=== PATIENT | male | born 1995 ===

== ENCOUNTER 2024-01-24 14:00 | Outpatient (CLI) | payer OTHER, SELFPAY | END 2024-01-24 14:01 | disposition home or self-care (01) | PROVIDERS: PCP Physician Assistant Medical; Visit Provider Physician Assistant Medical | DX: Z00.00 Encounter for general adult medical examination without abnormal findings (principal); S70.362D Insect bite (nonvenomous), left thigh, subsequent encounter; Z13.6 Encounter for screening for cardiovascular disorders; Z13.29 Encounter for screening for other suspected endocrine disorder; Z13.9 Encounter for screening, unspecified | CPT/HCPCS: 80053; 80061; 84443; 86618 ==